=== PATIENT | female | born 1985 | race Caucasian/White ===

== ENCOUNTER 2017-06-13 19:10 | Emergency (ER) | payer SELFPAY ==
[~2017-06-13] VITALS: Ht 157.5 cm; Wt 53.6 kg
[2017-06-13 19:30] VITALS: BP 115/79; PULSE 103; RESP 18; TEMP 98.8; O2SAT 99
[2017-06-13] MEDS ORDERED: CEPHALEXIN MONOHYDRATE 500 MG CAP PO ONE (20:00)
[2017-06-13] MEDS ORDERED: SULFAMETHOXAZOLE-TRIMETHOPRIM DS 800-160 MG TAB PO ONE (20:00)
[2017-06-13] MEDS ORDERED: BACT800T5 PO (20:01)
[2017-06-13] MEDS ORDERED: IBUP-232 PO (20:01)
[2017-06-13] MEDS ORDERED: CEPH-460 PO (20:01)
--- NOTE | 2017-06-13 20:02 | PD ---
HPI Chief Complaint: Skin Problem Time Seen by Provider: 19:36 Travel History International Travel<30 days: No Contact w/Intl Traveler<30days: No Traveled to known affect area: No History of Present Illness HPI 31-year-old female presents to the emergency department for evaluation of large abscess to her left dorsal forearm. Patient states she has had it for approximately 4-5 days. Patient admits to IV drug use. Patient denies any fevers or chills. She states she has had abscesses in the past which she opened up herself. Patient reports no chronic medical problems and takes no prescribed medications. Patient states she injects herself with Dilaudid. No exacerbating or alleviating factors. Moderate severity. Patient denies any chance of . [facility] Past Medical History ?: Not LMP: 06/10/2017 Past Surgical History Section: Yes Social History Alcohol Use: Yes Tobacco Use: Yes Substance Use: Yes (IV DILAUDID) Allergies-Medications (Allergen,Severity, Reaction): Coded Allergies: No Known Allergies (Unverified , 06/13/17) Reported Meds & Prescriptions Reported Meds & Active Scripts Active No Active Prescriptions or Reported Medications Review of Systems Except as stated in HPI: all other systems reviewed are Neg Physical Exam Narrative GENERAL: Well-nourished, well-developed female patient, afebrile. SKIN: Focused skin assessment warm/dry. Patient has approximately 5 cm fluctuant abscess to the left dorsal forearm with surrounding erythema. No lymphangitis. No active drainage. HEAD: Normocephalic. Atraumatic. EYES: No scleral icterus. No injection or drainage. NECK: Supple, trachea midline. No JVD or lymphadenopathy. CARDIOVASCULAR: Regular rate and rhythm without murmurs, gallops, or rubs. Left radial pulses 2+. RESPIRATORY: Breath sounds equal bilaterally. No accessory muscle use. Lungs sounds are clear to auscultation. MUSCULOSKELETAL: No cyanosis, or edema. BACK: Nontender without obvious deformity. No CVA tenderness. Data Data Last Documented VS Vital Signs Date Time Temp Pulse Resp B/P (MAP) Pulse Ox O2 Delivery O2 Flow Rate FiO2 06/13/17 19:30 98.8 103 18 115/79 (91) 99 Orders Orders Wound Culture And Gram Stain (06/13/17 19:57) Sulfamet-Trimeth Ds 800-160 Mg (Bactrim (06/13/17 20:00) Cephalexin (Keflex) (06/13/17 20:00) [facility] Medical Decision Making Medical Screen Exam Complete: Yes Emergency Medical Condition: Yes Medical Record Reviewed: Yes Differential Diagnosis Abscess versus cellulitis versus cyst Narrative Course 31-year-old female presents to the emergency department for evaluation of large abscess to her left dorsal forearm. Patient gives verbal consent for incision and drainage. Patient is started on Bactrim and Keflex and given her first dose in the emergency department. She is instructed on proper wound care. I did instruct patient to return in 2 days for recheck as this was a quite a large abscess. She is return sooner for any acute worsening of symptoms. The patient was discharged in stable condition with instructions, including return instructions and follow up instructions. Procedures Procedure Narrative INCISION AND DRAINAGE OF ABSCESS: The area was prepped and was sterilely draped. A subcutaneous wheal of 1% Xylocaine with a total number 6 mL was used to anesthetize the area. The area was properly anesthetized. A number 11 scalpel was used to make a 1 -cm incision across the area of the abscess. Cultures were obtained. The abscess was drained an irrigated with normal saline. Quarter inch iodoform packing was placed in the wound. Sterile dressing applied. Patient advised to have packing removed in two days. Diagnosis Primary Impression: Abscess of left forearm Referrals: Primary Care Physician call for appointment Patient Instructions: Abscess (ED), Abscess Incision and Drainage (GEN), General Instructions Additional Instructions: Take antibiotics as directed until gone. Bactrim is free at [facility]. Keflex is $4 at [facility] Clean twice daily with soap and water and apply [id number] antibiotic ointment Keep abscess clean and dry. Return in 2 days for recheck and packing removal. Follow-up with your primary care physician. Return to the emergency department for any acute worsening of symptoms. Med/Other Pt SpecificInfo: Prescription(s) given Scripts Ibuprofen (Ibuprofen) 600 Mg Tab 600 MG PO TID Y for PAIN SCALE 1 TO 10, #21 TAB 0 Refills Prov: Tarsha Tompkins 06/13/17 Cephalexin (Keflex) 500 Mg Cap 500 MG PO Q6H for Infection for 10 Days, #40 CAP 0 Refills Prov: Tarsha Tompkins 06/13/17 Sulfamethoxazole-Trimethoprim (Bactrim DS) 800-160 Mg Tab 1 TAB PO BID for Infection, #20 TAB 0 Refills Prov: Tarsha Tompkins 06/13/17 Disposition: 01 DISCHARGE HOME Condition: Stable Tarsha Tompkins Jun 13, 2017 20:02
== END 2017-06-13 20:10 | disposition home or self-care (01) ==
LOC: PHEFT 19:10
DX: L02.414 Cutaneous abscess of left upper limb (principal); F15.90 Other stimulant use, unspecified, uncomplicated; Z72.0 Tobacco use
CPT/HCPCS: 10061; 87070; 87205